=== PATIENT | male | born 1955 | race American Indian/Alaskan Native ===

== ENCOUNTER 2022-05-09 22:09 | Inpatient (IN) | payer MEDICAID, MEDICARE ==
[2022-05-09] MEDS ORDERED: IPRATROPIUM 0.02% NEBU 2.5 ML IH ONE (22:51)
[2022-05-09] MEDS ORDERED: ALBUTEROL 2.5 MG/3 ML NEBU IH ONE (22:51)
--- NOTE | 2022-05-09 22:56 | Emergency Department Report ---
ED Shortness of Breath HPI - General Chief Complaint: Dyspnea/Respdistress Stated Complaint: RAIE Time Seen by Provider: 05/09/22 22:37 Source: patient, EMS Mode of arrival: Stretcher Limitations: No Limitations - History of Present Illness Initial Comments: 66-year-old male with a tracheostomy x4 years status post acute respiratory failure secondary to CHF, diabetes, COPD with as needed 2 L home oxygen use, obesity, and asthma presents to the hospital with complaints of progressive worsening dyspnea today. Other symptoms include cough, frothy sputum, and worsening lower extremity edema. Patient has been noncompliant with his nightly Lasix for 3 to 4 days because it makes him urinate too much. He complains of anterior intermittent chest pain with coughing. EMS reports that patient was in tripoding position, diaphoretic, with a room air saturation 92% upon their arrival. He was suctioned approximately 8 times, received albuterol 5 mg in r oute, and Decadron 10 mg with improvement in symptoms. He was placed on tracheostomy oxygen collar with minified oxygen and additional suctioning of frothy sputum was performed by respiratory therapist. Patient denies fever. He is vaccinated for COVID. He denies history of PE/DVT or current anticoagulant use. His tracheostomy doctor is affiliated with [facility]. His sider mechanic is affiliated with [facility] - Related Data Allergies Allergy/AdvReac Type Severity Reaction Status Date / Time No Known Allergies Allergy Unverified 05/09/22 22:31 ED Review of Systems ROS: Stated complaint: ARIE Other details as noted in HPI Comment: All other systems reviewed and negative ED Past Medical Hx - Past Medical History Previous Medical History?: Yes Hx Heart Attack/AMI: Yes Hx Congestive Heart Failure: Yes Hx Diabetes: Yes Hx Asthma: Yes Hx COPD: Yes - Surgical History Past Surgical History?: Yes Additional Surgical History: trach - Social History Smoking Status: Former Smoker ED Physical Exam - General Limitations: No Limitations - Other Other exam information: General: No acute distress Head: Atraumatic Eyes: normal appearance ENT: Moist mucous membranes Neck: Normal appearance, tracheostomy noted, no stridor, patient able to speak with occlusion of tracheostomy. Frequent cough. Frothy clear sputum aspirated from tracheostomy site by respiratory therapist Chest: Frequent cough, bilateral expiratory wheezing, mild respiratory distress CV: Regular rate and rhythm Abdomen: Soft, normal bowel sounds, nontender, nondistended, no rebound or guarding Back: Normal inspection Extremity: 2+ bilateral lower extremity edema without calf tenderness or leg asymmetry Neuro: Alert O x 3, no facial asymmetry, speech clear, no gross motor sensory deficit Psych: Appropriate behavior Skin: No rash ED Course Vital Signs 05/09/22 05/09/22 05/09/22 22:30 22:31 22:45 Temperature 98.2 F Pulse Rate 97 H Pulse Rate [ 92 H Posterior Bilateral Throughout] Pulse Rate [ 97 H Posterior] Respiratory 18 Rate Respiratory 20 Rate [Posterior Bilateral Throughout] Respiratory 20 Rate [Posterior ] Blood Pressure 147/75 O2 Sat by Pulse 98 Oximetry O2 Sat by Pulse 96 Oximetry [ Assessment] 05/09/22 05/09/22 05/09/22 23:11 23:15 23:31 Temperature Pulse Rate 96 H 96 H 94 H Pulse Rate [ Posterior Bilateral Throughout] Pulse Rate [ Posterior] Respiratory 8 L 11 L 12 Rate Respiratory Rate [Posterior Bilateral Throughout] Respiratory Rate [Posterior ] Blood Pressure 149/79 149/79 O2 Sat by Pulse 98 92 98 Oximetry O2 Sat by Pulse Oximetry [ Assessment] 05/09/22 05/10/22 23:45 00:01 Temperature Pulse Rate 101 H 104 H Pulse Rate [ Posterior Bilateral Throughout] Pulse Rate [ Posterior] Respiratory 14 15 Rate Respiratory Rate [Posterior Bilateral Throughout] Respiratory Rate [Posterior ] Blood Pressure 149/79 153/88 O2 Sat by Pulse 93 96 Oximetry O2 Sat by Pulse Oximetry [ Assessment] - Reevaluation(s) Reevaluation #1: 05/09/22 23:34 ORDERED EKG REQUESTED 05/09/22 23:34 ATTEMPTING TO CALL LAB REGARDING BNP AND TROP DELAY (blood is in the lab and cmp has resulted), NO ANSWER, DISCUSSED WITH FLIGHT MECHANIC WHO WILL F/U WITH LAB. 05/09/22 23:50 EKG reviewed 05/10/22 00:41 I STILL DO NOT HAVE TROP AND BNP RESULTS, I REQUESTED THAT THE CHARGE NURSE TOM CALL THE LAB TO SEE IF SHE CAN GET THIS ISSUE RESOLVED. 05/10/22 01:31 TROP AND BNP REVIEWED AND NORMAL RANGE. PT IS UPSTAIRS ADMITTED ED Medical Decision Making - Lab Data Result diagrams: 05/09/22 22:53 05/09/22 22:53 Lab Results 05/09/22 05/09/22 05/09/22 Range/Units 22:53 22:53 22:53 WBC 7.6 (4.5-11.0) K/mm3 RBC 4.92 (3.65-5.03) M/mm3 Hgb 13.5 (11.8-15.2) gm/dl Hct 41.5 (35.5-45.6) % MCV 84 (84-94) fl MCH 28 (28-32) pg MCHC 33 (32-34) % RDW 16.6 H (13.2-15.2) % Plt Count 245 (140-440) K/mm3 Lymph % (Auto) 33.4 (13.4-35.0) % [place] % (Auto) 5.3 (0.0-7.3) % Eos % (Auto) 3.2 (0.0-4.3) % Baso % (Auto) 1.0 (0.0-1.8) % Lymph # (Auto) 2.5 (1.2-5.4) K/mm3 [place] # (Auto) 0.4 (0.0-0.8) K/mm3 Eos # (Auto) 0.2 (0.0-0.4) K/mm3 Baso # (Auto) 0.1 (0.0-0.1) K/mm3 Seg Neutrophils % 57.1 (40.0-70.0) % Seg Neutrophils # 4.3 (1.8-7.7) K/mm3 PT 12.5 (12.2-14.9) Sec. INR 0.83 L (0.87-1.13) APTT 22.0 L (24.2-36.6) Sec. Sodium 144 (137-145) mmol/L Potassium 3.4 L (3.6-5.0) mmol/L Chloride 101.1 (98-107) mmol/L Carbon Dioxide 26 (22-30) mmol/L Anion Gap 20 mmol/L BUN 12 (9-20) mg/dL Creatinine 0.7 L (0.8-1.3) mg/dL Estimated GFR > 60 ml/min BUN/Creatinine Ratio 17 % Glucose 241 H (75-100) mg/dL Calcium 8.7 (8.4-10.2) mg/dL Total Bilirubin 0.40 (0.1-1.2) mg/dL AST 70 H (5-40) units/L ALT 73 H (7-56) units/L Alkaline Phosphatase 90 (35-129) units/L Total Protein 7.0 (6.3-8.2) g/dL Albumin 3.9 (3.9-5) g/dL Albumin/Globulin Ratio 1.3 % BNP AND TROP PENDING - EKG Data -: EKG Interpreted by Me (ANTERIOR Q WAVES) EKG shows normal: sinus rhythm Rate: bradycardia (59) - EKG Data When compared to previous EKG there are: previous EKG unavailable - Radiology Data Radiology results: report reviewed CHEST 1 VIEW 05/09/2022 10:59 PM INDICATION / CLINICAL INFORMATION: Dyspnea, trach, copd, chf. COMPARISON: One view of the chest from 05/06/2012. FINDINGS: SUPPORT DEVICES: There is expected positioning of a tracheostomy tube. HEART / MEDIASTINUM: No significant abnormality. LUNGS / PLEURA: There are nonspecific bibasilar opacities, left greater than right. The upper lungs are clear. No significant pleural effusion. No pneumothorax. ADDITIONAL FINDINGS: No significant additional findings. IMPRESSION: Nonspecific bibasilar opacities could represent atelectasis or pneumonia. - Medical Decision Making 66-year male presents to the hospital with shortness of breath and wheezing with history of COPD, CHF, asthma, tracheostomy. Patient symptoms improving with bronchodilators, steroids, and magnesium ordered. Chest x-ray read by radiology as atelectasis versus infiltrate. Patient does have a cough of frothy sputum and worsening leg edema. Patient does not have a fever or leukocytosis however, blood cultures ordered and patient treated with Rocephin and azithromycin for community-acquired pneumonia/COPD exacerbation with increased sputum production. Mild hypokalemia noted in p.o. potassium ordered. Critical Care Time: No Critical care attestation.: If time is entered above; I have spent that time in minutes in the direct care of this critically ill patient, excluding procedure time. ED Disposition Clinical Impression: Acute exacerbation of COPD with asthma, CHF exacerbation, Bilateral pulmonary infiltrates on CXR, Noncompliance with medication regimen, Tracheostomy dependent Disposition: ADMITTED INPATIENT Is pt being admited?: Yes Condition: Stable Time of Disposition: 23:52 (Dr Stacy/hospitalist)
[2022-05-09 23:15] LABS: Basophils # (Auto) 0.1 K/mm3 (0.0-0.1); Eosinophils # (Auto) 0.2 K/mm3 (0.0-0.4); Eosinophils % (Auto) 3.2 % (0.0-4.3); Hematocrit 41.5 % (35.5-45.6); Hemoglobin 13.5 gm/dl (11.8-15.2); Lymphocytes # (Auto) 2.5 K/mm3 (1.2-5.4); Lymphocytes % (Auto) 33.4 % (13.4-35.0); Mean Corpuscular HGB Conc 33 % (32-34); Mean Corpuscular Volume 84 fl (84-94); Monocytes # (Auto) 0.4 K/mm3 (0.0-0.8); Monocytes % (Auto) 5.3 % (0.0-7.3); Platelet Count 245 K/mm3 (140-440); Red Blood Count 4.92 M/mm3 (3.65-5.03); Red Cell Distribution Width 16.6 % (13.2-15.2)
--- NOTE | 2022-05-09 23:19 | XRay Report ---
CHEST 1 VIEW 05/09/2022 10:59 PM INDICATION / CLINICAL INFORMATION: Dyspnea, trach, copd, chf. COMPARISON: One view of the chest from 05/06/2012. FINDINGS: SUPPORT DEVICES: There is expected positioning of a tracheostomy tube. HEART / MEDIASTINUM: No significant abnormality. LUNGS / PLEURA: There are nonspecific bibasilar opacities, left greater than right. The upper lungs a re clear. No significant pleural effusion. No pneumothorax. ADDITIONAL FINDINGS: No significant additional findings. IMPRESSION: Nonspecific bibasilar opacities could represent atelectasis or pneumonia. Signer Name: Brody Abreu MD Signed: 05/09/2022 11:15 PM Workstation Name: [id number]
[2022-05-09 23:23] LABS: INR 0.83 (0.87-1.13)
[2022-05-09] MEDS ORDERED: MAGNESIUM SULFATE 2 GM/50 ML BAG IV ONE (23:24)
[2022-05-09 23:28] LABS: Alanine Aminotransferase 73 units/L (7-56); Albumin 3.9 g/dL (3.9-5); Blood Urea Nitrogen 12 mg/dL (9-20); Calcium 8.7 mg/dL (8.4-10.2); Hemolysis Index 19
[2022-05-09 23:30] LABS: BUN/Creatinine Ratio 17
[2022-05-09] MEDS ORDERED: POTASSIUM CHLORIDE 20 MEQ PACKET PO ONE (23:31)
[2022-05-09] MEDS ORDERED: AZITHROMYCIN/NS 500 MG/250 ML 500 MG/250 ML BAG IV ONE (23:32)
[2022-05-09] MEDS ORDERED: cefTRIAXone/NS 1 GM/50 ML 1 GM/50 ML BAG IV ONE (23:32)
[2022-05-09] MEDS ORDERED: DEXTROSE 50% IN WATER (25GM) 50 ML SYRINGE IV PRN (23:55)
[2022-05-09] MEDS ORDERED: MAGNESIUM HYDROXIDE (MOM) ORAL LIQD UDC PO PRN (23:55)
[2022-05-09] MEDS ORDERED: ACETAMINOPHEN 325 MG TAB PO PRN (23:55)
--- NOTE | 2022-05-10 00:08 | History and Physical Report ---
History of Present Illness Date of examination: 05/09/22 Date of admission: 05/09/2022 Chief complaint: Shortness of breath History of present illness: ' 66-year-old -German male with known history of CHF, COPD, diabetes mellitus and history of coronary artery disease presenting to the emergency room today via EMS with complaints of shortness of breath. Shortness of breath has been getting progressively worse during the course of the day. He has had some cough Productive of some frothy sputum. He also has complained of some swelling in his extremities. Patient admits that he has not been quite compliant with his diuretics. He has not had his diuretic for about 3 to 4 days. Patient denies any fever or chills, no chest pain, no headache or dizziness and no diaphoresis. She denies any sick contacts and no recent travel. Denies any contact with anyone with COVID-19. Indicates he has been fully vaccinated against COVID-19. Upon arrival of EMS was said to be diaphoretic with an O2 saturation of 92% on room air. Patient was repeatedly suctioned and given some nebulizing treatment in route to the hospital. Work-up in the emergency room today, labs significant for mild hypokalemia of 3.4. Chest x-ray shows nonspecific bibasilar opacities which could represent atelectasis or pneumonia. Patient placed on nebulizer treatments, empiric IV antibiotics and diuretics. Past History Past Medical History: acute AR, COPD, diabetes, heart failure, hypertension, other (Asthma) Past Surgical History: Other (History of trip placement) Social history: smoking (Former smoker) Medications and Allergies Allergies Allergy/AdvReac Type Severity Reaction Status Date / Time No Known Allergies Allergy Unverified 05/09/22 22:31 Active Meds: Active Medications Acetaminophen (Acetaminophen 325 Mg Tab) 650 mg PO Q4H PRN PRN Reason: Pain MILD(1-3)/Fever >100.5/FUNG Albuterol/Ipratropium (Ipratropium/Albuterol Sulfate 3 Ml Ampul.Neb) 1 ampul IH Q6HRT [facility] Dextrose (Dextrose 50% In Water (25gm) 50 Ml Syringe) 50 ml IV Q30MIN PRN; Protocol PRN Reason: Hypoglycemia Furosemide (Furosemide 40 Mg/4 Ml Inj) 40 mg IV BID@0600,1800 [facility] Heparin Sodium (Porcine) (Heparin 5,000 Unit/1 Ml Vial) 5,000 unit SUB-Q Q8HR [facility] Azithromycin (Zithromax/Ns) 500 mg in 250 mls @ 250 mls/hr IV ONCE ONE; Protocol Stop: 05/10/22 00:31 Azithromycin (Zithromax/Ns) 500 mg in 250 mls @ 250 mls/hr IV Q24H JUSTINO; Protocol Ceftriaxone Sodium (Rocephin/Ns 2 Gm/100 Ml) 2 gm in 100 mls @ 200 mls/hr IV Q24H JUSTINO; Protocol Insulin Human Lispro (Insulin Lispro 100 Unit/Ml) 0 unit SUB-Q ACHS JUSTINO; Protocol Magnesium Hydroxide (Magnesium Hydroxide (Mom) Oral Liqd Udc) 30 ml PO Q4H PRN PRN Reason: Constipation Morphine Sulfate (Morphine 2 Mg/1 Ml Inj) 2 mg IV Q4H PRN PRN Reason: Pain, Moderate (4-6) Morphine Sulfate (Morphine 4 Mg/1 Ml Inj) 4 mg IV Q4H PRN PRN Reason: Pain , Severe (7-10) Ondansetron HCl (Ondansetron 4 Mg/2 Ml Inj) 4 mg IV Q8H PRN PRN Reason: Nausea And Vomiting Sodium Chloride (Sodium Chloride 0.9% 10 Ml Flush Syringe) 10 ml IV BID JUSTINO Sodium Chloride (Sodium Chloride 0.9% 10 Ml Flush Syringe) 10 ml IV PRN PRN PRN Reason: LINE FLUSH Review of Systems Constitutional: no fever, no chills Ears, nose, mouth and throat: no nasal congestion, no sore throat Cardiovascular: no chest pain, no palpitations Respiratory: shortness of breath, wheezing, no cough Gastrointestinal: no abdominal pain, no nausea, no vomiting, no diarrhea Genitourinary Male: no dysuria, no hematuria, no flank pain, no nocturia Musculoskeletal: no neck pain, no low back pain Integumentary: no rash, no pruritis Neurological: no headaches, no confusion Psychiatric: no anxiety, no depression Endocrine: no polyphagia, no polydipsia, no polyuria, no nocturia Exam - Constitutional Vitals: Temp Pulse Resp BP Pulse Ox 98.2 F 92 H 20 147/75 98 05/09/22 22:31 05/09/22 22:45 05/09/22 22:45 05/09/22 22:31 05/09/22 22:31 General appearance: Present: no acute distress, well-nourished, obese - EENT Eyes: Present: PERRL, EOM intact. Absent: scleral icterus ENT: hearing intact, clear oral mucosa, dentition normal, other (Trach in place) - Neck Neck: Present: supple, normal ROM - Respiratory Respiratory effort: normal Respiratory: bilateral: rales - Cardiovascular Rhythm: regular Heart Sounds: Present: S1 & S2. Absent: gallop, systolic murmur, diastolic murm ur, rub, click - Extremities Extremities: no ischemia, pulses intact, normal temperature, normal color, Full ROM Extremity abnormal: edema (1+ bilateral lower extremity edema) Peripheral Pulses: within normal limits - Abdominal General gastrointestinal: Present: soft, non-tender, non-distended, normal bowel sounds. Absent: mass - Integumentary Integumentary: Present: clear, warm, dry, normal turgor. Absent: rash - Musculoskeletal Musculoskeletal: strength equal bilaterally - Psychiatric Psychiatric: appropriate mood/affect, intact judgment & insight, memory intact, cooperative - Neurologic Neurologic: CNII-XII intact, no focal deficits, moves all extremities Results - Labs CBC & Chem 7: 05/09/22 22:53 05/09/22 22:53 Labs: Abnormal lab results 05/09/22 05/09/22 05/09/22 Range/Units 22:53 22:53 22:53 RDW 16.6 H (13.2-15.2) % INR 0.83 L (0.87-1.13) APTT 22.0 L (24.2-36.6) Sec. Potassium 3.4 L (3.6-5.0) mmol/L Creatinine 0.7 L (0.8-1.3) mg/dL Glucose 241 H (75-100) mg/dL AST 70 H (5-40) units/L ALT 73 H (7-56) units/L Assessment and Plan Assessment 1. Respiratory distresssecondary to CHF exacerbation versus COPD 2. Hypokalemia 3. Diabetes mellitus 4. History of asthma 5. History of coronary artery disease 6. Trach dependent Plan: 1. Patient admitted to the medical floor. Placed on nebulizing treatments and IV steroid. 2. Also placed on diuretics and monitor inputs and outputs and daily weights. 3. We will schedule patient for echocardiogram. 4. We will resume routine home medications. 5. Patient placed on sliding scale insulin. We will monitor Accu-Cheks. 6. We will replete potassium and monitor chemistry. DVT prophylaxis: Subcutaneous heparin CODE STATUS: Full code
[2022-05-10] MEDS ORDERED: IPRATROPIUM/ALBUTEROL SULFATE 3 ML AMPUL.NEB IH SCH (02:00)
[2022-05-10] MEDS: IPRATROPIUM/ALBUTEROL SULFATE 3 ML AMPUL.NEB IH SCH ×4 (02:00→20:01)
[2022-05-10] MEDS ORDERED: POTASSIUM CHLORIDE 20 MEQ PACKET PO ONE (02:00)
[2022-05-10] MEDS: ONDANSETRON 4 MG/2 ML INJ IV PRN ×3 (02:09→21:11)
[2022-05-10] MEDS: MORPHINE 4 MG/1 ML INJ IV PRN ×3 (02:09→21:11)
[2022-05-10 05:46] LABS: Basophils % (Auto) 0.4 % (0.0-1.8); Eosinophils % (Auto) 0.1 % (0.0-4.3); Hemoglobin 13.3 gm/dl (11.8-15.2); Mean Corpuscular HGB Conc 32 % (32-34); Mean Corpuscular Volume 85 fl (84-94); Monocytes # (Auto) 0.1 K/mm3 (0.0-0.8); Monocytes % (Auto) 0.9 % (0.0-7.3); Platelet Count 227 K/mm3 (140-440); Red Blood Count 4.92 M/mm3 (3.65-5.03); Red Cell Distribution Width 16.4 % (13.2-15.2)
[2022-05-10] MEDS: HEPARIN 5,000 UNIT/1 ML VIAL SUB-Q SCH ×3 (05:50→21:07)
[2022-05-10] MEDS: methylPREDNISolone Sod Succinate 40 MG/1 ML INJ IV SCH ×3 (05:50→21:06)
[2022-05-10] MEDS: FUROSEMIDE 40 MG/4 ML INJ IV SCH ×2 (05:51→17:01)
[2022-05-10 05:53] LABS: Blood Urea Nitrogen 12 mg/dL (9-20); Calcium 8.6 mg/dL (8.4-10.2); Hemolysis Index 8
[2022-05-10 05:54] LABS: BUN/Creatinine Ratio 17
[2022-05-10] MEDS: INSULIN LISPRO 100 UNIT/ML SUB-Q SCH ×4 (08:22→21:07)
--- NOTE | 2022-05-10 10:03 | Progress Note ---
Assessment and Plan Assessment and plan: Acute on chronic hypoxic respiratory failure. Tracheostomy dependent Acute CHF. COPD exacerbation Hypokalemia Diabetes mellitus type 2 History of CAD 05/10/2022. Follow-up COVID 19 PCR. Continue IV steroids and bronchodilators/nebulizers. Continue diuresis and monitor I/O's plus daily weights. Follow-up echocardiogram. Cardiology consultation pending. Continue tracheostomy care, secretion control and airway management. Continue sliding scale insulin and Accu-Cheks. History Interval history: No new issues overnight Hospitalist Physical - Constitutional Vitals: Temp Pulse Resp BP Pulse Ox 98.1 F 94 H 20 169/88 95 05/10/22 07:43 05/10/22 07:43 05/10/22 03:55 05/10/22 07:43 05/10/22 07:43 General appearance: Present: no acute distress, well-nourished, obese - EENT Eyes: Present: PERRL, EOM intact ENT: hearing intact, clear oral mucosa, dentition normal - Neck Neck: Present: supple, normal ROM - Respiratory Respiratory effort: normal Respiratory: bilateral: CTA - Cardiovascular Rhythm: regular Heart Sounds: Present: S1 & S2. Absent: gallop, rub - Extremities Extremities: no ischemia, No edema, Full ROM - Abdominal General gastrointestinal: soft, non-tender, non-distended, normal bowel sounds - Integumentary Integumentary: Present: clear, warm, dry - Neurologic Neurologic: CNII-XII intact, moves all extremities HEART Score - HEART Score Troponin: Troponin T < 0.010 ng/mL (0.00-0.029) 05/10/22 04:43 Results - Labs CBC & Chem 7: 05/10/22 04:43 05/10/22 04:43 Labs: Laboratory Last Values WBC 7.7 K/mm3 (4.5-11.0) 05/10/22 04:43 RBC 4.92 M/mm3 (3.65-5.03) 05/10/22 04:43 Hgb 13.3 gm/dl (11.8-15.2) 05/10/22 04:43 Hct 42.0 % (35.5-45.6) 05/10/22 04:43 MCV 85 fl (84-94) 05/10/22 04:43 MCH 27 pg (28-32) L 05/10/22 04:43 MCHC 32 % (32-34) 05/10/22 04:43 RDW 16.4 % (13.2-15.2) H 05/10/22 04:43 Plt Count 227 K/mm3 (140-440) 05/10/22 04:43 Lymph % (Auto) 13.0 % (13.4-35.0) L 05/10/22 04:43 [place] % (Auto) 0.9 % (0.0-7.3) 05/10/22 04:43 Eos % (Auto) 0.1 % (0.0-4.3) 05/10/22 04:43 Baso % (Auto) 0.4 % (0.0-1.8) 05/10/22 04:43 Lymph # (Auto) 1.0 K/mm3 (1.2-5.4) L 05/10/22 04:43 [place] # (Auto) 0.1 K/mm3 (0.0-0.8) 05/10/22 04:43 Eos # (Auto) 0.0 K/mm3 (0.0-0.4) 05/10/22 04:43 Baso # (Auto) 0.0 K/mm3 (0.0-0.1) 05/10/22 04:43 Seg Neutrophils % 85.6 % (40.0-70.0) H 05/10/22 04:43 Seg Neutrophils # 6.6 K/mm3 (1.8-7.7) 05/10/22 04:43 PT 12.5 Sec. (12.2-14.9) 05/09/22 22:53 INR 0.83 (0.87-1.13) L 05/09/22 22:53 APTT 22.0 Sec. (24.2-36.6) L 05/09/22 22:53 Sodium 140 mmol/L (137-145) 05/10/22 04:43 Potassium 4.4 mmol/L (3.6-5.0) D 05/10/22 04:43 Chloride 100.0 mmol/L (98-107) 05/10/22 04:43 Carbon Dioxide 25 mmol/L (22-30) 05/10/22 04:43 Anion Gap 19 mmol/L 05/10/22 04:43 BUN 12 mg/dL (9-20) 05/10/22 04:43 Creatinine 0.7 mg/dL (0.8-1.3) L 05/10/22 04:43 Estimated GFR > 60 ml/min 05/10/22 04:43 BUN/Creatinine Ratio 17 % 05/10/22 04:43 Glucose 270 mg/dL (75-100) H 05/10/22 04:43 POC Glucose 290 mg/dL (70-105) H 05/10/22 07:41 Calcium 8.6 mg/dL (8.4-10.2) 05/10/22 04:43 Total Bilirubin 0.40 mg/dL (0.1-1.2) 05/09/22 22:53 AST 70 units/L (5-40) H 05/09/22 22:53 ALT 73 units/L (7-56) H 05/09/22 22:53 Alkaline Phosphatase 90 units/L (35-129) 05/09/22 22:53 Troponin T < 0.010 ng/mL (0.00-0.029) 05/10/22 04:43 NT-Pro-B Natriuret Pep 27.76 pg/mL (0-900) 05/09/22 22:53 Total Protein 7.0 g/dL (6.3-8.2) 05/09/22 22:53 Albumin 3.9 g/dL (3.9-5) 05/09/22 22:53 Albumin/Globulin Ratio 1.3 % 05/09/22 22:53 Microbiology: Microbiology 05/09/22 23:41 Peripheral/Venous Blood Culture - Preliminary Culture in Progress 05/10/22 00:27 Peripheral/Venous Blood Culture - Preliminary Culture in Progress [place]/IV: Voiding Method Urinal Active Medications - Current Medications Current Medications: Generic Name Dose Route Start Last Admin Trade Name Freq PRN Reason Stop Dose Admin Acetaminophen 650 mg 05/09/22 23:55 Acetaminophen 325 Mg Tab PO Q4H PRN Pain MILD(1-3)/Fever >100.5/FUNG Albuterol/Ipratropium 1 ampul 05/10/22 02:00 05/10/22 02:00 Ipratropium/Albuterol Sulfate 3 Ml Ampul.Neb IH Not Given Q6HRT [facility]INO Dextrose 0 ml 05/09/22 23:55 Dextrose 50% In Water (25gm) 50 Ml Syringe IV Q30MIN PRN Hypoglycemia Protocol Furosemide 40 mg 05/10/22 06:00 05/10/22 05:51 Furosemide 40 Mg/4 Ml Inj IV 40 mg BID@0600,1800 JUST[facility] Administration Heparin Sodium (Porcine) 5,000 unit 05/10/22 06:00 05/10/22 05:50 Heparin 5,000 Unit/1 Ml Vial SUB-Q 5,000 unit Q8HR [facility]INO Administration Azithromycin 500 mg in 250 mls @ 250 mls/hr 05/10/22 10:00 Zithromax/Ns IV Q24HR [facility] Protocol Ceftriaxone Sodium 2 gm in 100 mls @ 200 mls/hr 05/10/22 10:00 Rocephin/Ns 2 Gm/100 Ml IV Q24HR [facility] Protocol Insulin Human Lispro 0 unit 05/10/22 07:30 05/10/22 08:22 Insulin Lispro 100 Unit/Ml SUB-Q 4 unit ACHS JUSTINO Administration Protocol Magnesium Hydroxide 30 ml 05/09/22 23:55 Magnesium Hydroxide (Mom) Oral Liqd Udc PO Q4H PRN Constipation Methylprednisolone Sodium Succinate 40 mg 05/10/22 06:00 05/10/22 05:50 Methylprednisolone Sod Succinate 40 Mg/1 Ml Inj IV 40 mg Q8HR JUSTINO Administration Morphine Sulfate 2 mg 05/09/22 23:55 Morphine 2 Mg/1 Ml Inj IV Q4H PRN Pain, Moderate (4-6) Morphine Sulfate 4 mg 05/09/22 23:55 05/10/22 08:28 Morphine 4 Mg/1 Ml Inj IV 4 mg Q4H PRN Administration Pain , Severe (7-10) Ondansetron HCl 4 mg 05/09/22 23:55 05/10/22 02:09 Ondansetron 4 Mg/2 Ml Inj IV 4 mg Q8H PRN Administration Nausea And Vomiting Sodium Chloride 10 ml 05/10/22 10:00 Sodium Chloride 0.9% 10 Ml Flush Syringe IV BID JUSTINO Sodium Chloride 10 ml 05/09/22 23:55 Sodium Chloride 0.9% 10 Ml Flush Syringe IV PRN PRN LINE FLUSH
[2022-05-10] MEDS: AZITHROMYCIN/NS 500 MG/250 ML 500 MG/250 ML BAG IV SCH (10:18)
[2022-05-10] MEDS: cefTRIAXone/NS 2 GM/100 ML 2 GM/100 ML BAG IV SCH (10:18)
--- NOTE | 2022-05-10 14:25 | Electrocardiograph Report ---
[facility] Test Date: 2022-05-09 Test Time: 23:46:49 Pat Name: DIEGO DENNY Department: Room: A476 1 Gender: M Medical Lab Assistant: SHERYL : 1955 Requested By: LEIA SYLVESTER Order Number: [id number] Reading MD: Marv Quiles Measurements Intervals [place] Rate: 99 P: 79 [place]: 144 QRS: -28 QRSD: 95 T: 62 QT: 370 QTc: 475 Interpretive Statements Sinus rhythm Left axis deviation Anterior infarct, old No previous ECG available for comparison Electronically Signed On 05-10-2022 14:24:56 EDT by Marv Quiles
[2022-05-11] MEDS: IPRATROPIUM/ALBUTEROL SULFATE 3 ML AMPUL.NEB IH SCH ×4 (04:44→21:21)
[2022-05-11] MEDS: HEPARIN 5,000 UNIT/1 ML VIAL SUB-Q SCH ×3 (05:21→22:59)
[2022-05-11] MEDS: FUROSEMIDE 40 MG/4 ML INJ IV SCH ×2 (05:21→18:12)
[2022-05-11] MEDS: methylPREDNISolone Sod Succinate 40 MG/1 ML INJ IV SCH ×3 (05:21→22:58)
[2022-05-11 06:33] LABS: Basophils # (Auto) 0.1 K/mm3 (0.0-0.1); Basophils % (Auto) 0.7 % (0.0-1.8); Eosinophils # (Auto) 0.1 K/mm3 (0.0-0.4); Eosinophils % (Auto) 0.6 % (0.0-4.3); Hematocrit 43.9 % (35.5-45.6); Hemoglobin 14.1 gm/dl (11.8-15.2); Lymphocytes # (Auto) 1.2 K/mm3 (1.2-5.4); Lymphocytes % (Auto) 11.4 % (13.4-35.0); Mean Corpuscular HGB Conc 32 % (32-34); Mean Corpuscular Volume 84 fl (84-94); Monocytes # (Auto) 0.3 K/mm3 (0.0-0.8); Monocytes % (Auto) 3.2 % (0.0-7.3); Platelet Count 229 K/mm3 (140-440); Red Cell Distribution Width 16.2 % (13.2-15.2)
[2022-05-11 06:57] LABS: BUN/Creatinine Ratio 20; Blood Urea Nitrogen 20 mg/dL (9-20); Calcium 8.7 mg/dL (8.4-10.2); Hemolysis Index 90
[2022-05-11] MEDS: INSULIN LISPRO 100 UNIT/ML SUB-Q SCH ×4 (08:29→23:00)
[2022-05-11] MEDS: INSULIN GLARGINE 100 UNITS/ML SUB-Q SCH (08:34)
[2022-05-11] MEDS: cefTRIAXone/NS 2 GM/100 ML 2 GM/100 ML BAG IV SCH (09:18)
[2022-05-11] MEDS: AZITHROMYCIN/NS 500 MG/250 ML 500 MG/250 ML BAG IV SCH (09:18)
[2022-05-11] MEDS: MORPHINE 4 MG/1 ML INJ IV PRN ×2 (09:18→22:58)
--- NOTE | 2022-05-11 10:53 | Consultation ---
History of Present Illness Consult date: 05/11/22 Consult reason: congestive heart failure History of present illness: 66-year-old male with past medical history of diabetes, asthma, and trach dep endence is admitted with shortness of breath. Patient reports that he was previously told of heart failure history. He is currently without chest pain or shortness of breath. Work-up thus far notable for EKG with sinus rhythm, no acute ischemic changes, and possible anteroseptal Q waves. Troponins x3 is negative and NT-proBNP is normal. Chest x-ray notable for nonspecific bibasilar opacities possibly representing atelectasis or pneumonia. COVID-19 testing is negative. Tele - ST 103 Past History Past Medical History: acute [place], COPD, diabetes, heart failure, hypertension, other (Asthma) Past Surgical History: Other (History of trip placement) Social history: smoking (Former smoker) Medications and Allergies Allergies Allergy/AdvReac Type Severity Reaction Status Date / Time No Known Allergies Allergy Verified 05/10/22 10:40 Home Medications Medication Instructions Recorded Confirmed Last Taken Type ALBUTEROL NEB's [Proventil 0.083% 2.5 mg IH TID PRN 05/10/22 05/10/22 Unknown History NEBS] Albuterol Mdi (or & Nicu Only) 1 puff IH QID PRN 05/10/22 05/10/22 Unknown History [ProAir HFA Inhaler] AtorvaSTATin [Lipitor] 40 mg PO QDAY 05/10/22 05/10/22 Unknown History Fluticasone/Salmeterol [Advair 250 mg INHALATION QDAY 05/10/22 05/10/22 Unknown History Diskus 250-50 mcg] Furosemide [Lasix] 40 mg PO DAILY 05/10/22 05/10/22 Unknown History Gabapentin 300 mg PO DAILY 05/10/22 05/10/22 Unknown History Insulin Aspart [Novolog Flexpen] 30 unit SQ TID 05/10/22 05/10/22 Unknown History Naproxen [Naprosyn TAB] 500 mg PO DAILY 05/10/22 05/10/22 Unknown History Active Meds: Active Medications Acetaminophen (Acetaminophen 325 Mg Tab) 650 mg PO Q4H PRN PRN Reason: Pain MILD(1-3)/Fever >100.5/FUNG Albuterol/Ipratropium (Ipratropium/Albuterol Sulfate 3 Ml Ampul.Neb) 1 ampul IH Q6HRT [facility] Last Admin: 05/11/22 08:22 Dose: 1 ampul Dextrose (Dextrose 50% In Water (25gm) 50 Ml Syringe) 0 ml IV Q30MIN PRN; Protocol PRN Reason: Hypoglycemia Furosemide (Furosemide 40 Mg/4 Ml Inj) 40 mg IV BID@0600,1800 [facility] Last Admin: 05/11/22 05:21 Dose: 40 mg Heparin Sodium (Porcine) (Heparin 5,000 Unit/1 Ml Vial) 5,000 unit SUB-Q Q8HR [facility] Last Admin: 05/11/22 05:21 Dose: 5,000 unit Azithromycin (Zithromax/Ns) 500 mg in 250 mls @ 250 mls/hr IV Q24HR [facility]; Protocol Last Admin: 05/11/22 09:18 Dose: 250 mls/hr Ceftriaxone Sodium (Rocephin/Ns 2 Gm/100 Ml) 2 gm in 100 mls @ 200 mls/hr IV Q24HR [facility]; Protocol Last Admin: 05/11/22 09:18 Dose: 200 mls/hr Insulin Glargine (Insulin Glargine 100 Units/Ml) 15 units SUB-Q DAILY [facility] Last Admin: 05/11/22 08:34 Dose: 15 units Insulin Human Lispro (Insulin Lispro 100 Unit/Ml) 0 unit SUB-Q ACHS [facility]; Protocol Last Admin: 05/11/22 08:29 Dose: 8 unit Magnesium Hydroxide (Magnesium Hydroxide (Mom) Oral Liqd Udc) 30 ml PO Q4H PRN PRN Reason: Constipation Methylprednisolone Sodium Succinate (Methylprednisolone Sod Succinate 40 Mg/1 Ml Inj) 40 mg IV Q8HR [facility] Last Admin: 05/11/22 05:21 Dose: 40 mg Morphine Sulfate (Morphine 2 Mg/1 Ml Inj) 2 mg IV Q4H PRN PRN Reason: Pain, Moderate (4-6) Morphine Sulfate (Morphine 4 Mg/1 Ml Inj) 4 mg IV Q4H PRN PRN Reason: Pain , Severe (7-10) Last Admin: 05/11/22 09:18 Dose: 4 mg Ondansetron HCl (Ondansetron 4 Mg/2 Ml Inj) 4 mg IV Q8H PRN PRN Reason: Nausea And Vomiting Last Admin: 05/10/22 21:11 Dose: 4 mg Sodium Chloride (Sodium Chloride 0.9% 10 Ml Flush Syringe) 10 ml IV BID JUSTINO Last Admin: 05/11/22 09:19 Dose: 10 ml Sodium Chloride (Sodium Chloride 0.9% 10 Ml Flush Syringe) 10 ml IV PRN PRN PRN Reason: LINE FLUSH Physical Examination Vital Signs Pulse Ox 96 05/09/22 22:30 Narrative exam: Gen-NAD, comfortable HEENT-normocephalic, atraumatic CV-RRR, no murmurs Lungs-CTAB, no increased WOB, + trach Abd-soft, nt,nd, obese Ext-no edema, warm to touch Neuro-no focal deficits, alert and oriented Psych-normal affect, no agitation Results 05/11/22 06:06 05/11/22 06:06 CBC 05/11/22 Range/Units 06:06 WBC 10.4 (4.5-11.0) K/mm3 RBC 5.20 H (3.65-5.03) M/mm3 Hgb 14.1 (11.8-15.2) gm/dl Hct 43.9 (35.5-45.6) % Plt Count 229 (140-440) K/mm3 Lymph # (Auto) 1.2 (1.2-5.4) K/mm3 [place] # (Auto) 0.3 (0.0-0.8) K/mm3 Eos # (Auto) 0.1 (0.0-0.4) K/mm3 Baso # (Auto) 0.1 (0.0-0.1) K/mm3 Comprehensive Metabolic Panel 05/11/22 Range/Units 06:06 Sodium 129 L D (137-145) mmol/L Potassium 4.6 (3.6-5.0) mmol/L Chloride 91.1 L (98-107) mmol/L Carbon Dioxide 23 (22-30) mmol/L BUN 20 (9-20) mg/dL Creatinine 1.0 (0.8-1.3) mg/dL Glucose 421 H (75-100) mg/dL Calcium 8.7 (8.4-10.2) mg/dL 05/09/22 EKG - SR 99, possible anteroseptal Q waves, no acute ischemic changes Assessment and Plan #Dyspnea #Diabetes #Asthma #Acute on chronic respiratory failure - trach dependent Will obtain echocardiogram. NT-pro BNP is <300; thus diagnosis of decompensated heart failure is unlikely at this time. Continue treatment of lung disease.
--- NOTE | 2022-05-11 11:07 | Progress Note ---
Assessment and Plan Assessment and plan: Acute on chronic hypoxic respiratory failure. Tracheostomy dependent COPD exacerbation Hypokalemia Diabetes mellitus type 2, uncontrolled History of CAD 05/10/2022. Follow-up COVID 19 PCR. Continue IV steroids and bronchodilators/nebulizers. Continue diuresis and monitor I/O's plus daily weights. Follow-up echocardiogram. Cardiology consultation pending. Continue tracheostomy care, secretion control and airway management. Continue sliding scale insulin and Accu-Cheks. 05/11/2022. COVID PCR found to be negative. Await echocardiogram results to determine systolic and diastolic function. Etiology of respiratory failure likely secondary to COPD exacerbation. BNP is normal therefore diagnosis of decompensated heart failure is unlikely. Continue Accu-Cheks and sliding scale insulin. We will initiate Lantus 15 units every morning for hyperglycemia given the administration of steroids. Patient currently requiring 6 L O2. Patient reports that he is not on home oxygen. History Interval history: No new issues overnight Hospitalist Physical - Constitutional Vitals: Temp Pulse Resp BP Pulse Ox 97.9 F 71 18 150/87 98 05/11/22 08:08 05/11/22 08:08 05/11/22 08:08 05/11/22 08:08 05/11/22 08:25 General appearance: Present: no acute distress, well-nourished, obese - EENT Eyes: Present: PERRL, EOM intact ENT: hearing intact, clear oral mucosa, dentition normal - Neck Neck: Present: supple, normal ROM - Respiratory Respiratory effort: normal Respiratory: bilateral: CTA - Cardiovascular Rhythm: regular Heart Sounds: Present: S1 & S2. Absent: gallop, rub - Extremities Extremities: no ischemia, No edema, Full ROM - Abdominal General gastrointestinal: soft, non-tender, non-distended, normal bowel sounds - Integumentary Integumentary: Present: clear, warm, dry - Neurologic Neurologic: CNII-XII intact, moves all extremities HEART Score - HEART Score Troponin: Troponin T < 0.010 ng/mL (0.00-0.029) 05/10/22 04:43 Results - Labs CBC & Chem 7: 05/11/22 06:06 05/11/22 06:06 Labs: Laboratory Last Values WBC 10.4 K/mm3 (4.5-11.0) 05/11/22 06:06 RBC 5.20 M/mm3 (3.65-5.03) H 05/11/22 06:06 Hgb 14.1 gm/dl (11.8-15.2) 05/11/22 06:06 Hct 43.9 % (35.5-45.6) 05/11/22 06:06 MCV 84 fl (84-94) 05/11/22 06:06 MCH 27 pg (28-32) L 05/11/22 06:06 MCHC 32 % (32-34) 05/11/22 06:06 RDW 16.2 % (13.2-15.2) H 05/11/22 06:06 Plt Count 229 K/mm3 (140-440) 05/11/22 06:06 Lymph % (Auto) 11.4 % (13.4-35.0) L 05/11/22 06:06 [place] % (Auto) 3.2 % (0.0-7.3) 05/11/22 06:06 Eos % (Auto) 0.6 % (0.0-4.3) 05/11/22 06:06 Baso % (Auto) 0.7 % (0.0-1.8) 05/11/22 06:06 Lymph # (Auto) 1.2 K/mm3 (1.2-5.4) 05/11/22 06:06 [place] # (Auto) 0.3 K/mm3 (0.0-0.8) 05/11/22 06:06 Eos # (Auto) 0.1 K/mm3 (0.0-0.4) 05/11/22 06:06 Baso # (Auto) 0.1 K/mm3 (0.0-0.1) 05/11/22 06:06 Seg Neutrophils % 84.1 % (40.0-70.0) H 05/11/22 06:06 Seg Neutrophils # 8.7 K/mm3 (1.8-7.7) H 05/11/22 06:06 PT 12.5 Sec. (12.2-14.9) 05/09/22 22:53 INR 0.83 (0.87-1.13) L 05/09/22 22:53 APTT 22.0 Sec. (24.2-36.6) L 05/09/22 22:53 Sodium 129 mmol/L (137-145) L D 05/11/22 06:06 Potassium 4.6 mmol/L (3.6-5.0) 05/11/22 06:06 Chloride 91.1 mmol/L (98-107) L 05/11/22 06:06 Carbon Dioxide 23 mmol/L (22-30) 05/11/22 06:06 Anion Gap 20 mmol/L 05/11/22 06:06 BUN 20 mg/dL (9-20) 05/11/22 06:06 Creatinine 1.0 mg/dL (0.8-1.3) 05/11/22 06:06 Estimated GFR > 60 ml/min 05/11/22 06:06 BUN/Creatinine Ratio 20 % 05/11/22 06:06 Glucose 421 mg/dL (75-100) H 05/11/22 06:06 POC Glucose 449 mg/dL (70-105) H 05/11/22 08:05 Calcium 8.7 mg/dL (8.4-10.2) 05/11/22 06:06 Total Bilirubin 0.40 mg/dL (0.1-1.2) 05/09/22 22:53 AST 70 units/L (5-40) H 05/09/22 22:53 ALT 73 units/L (7-56) H 05/09/22 22:53 Alkaline Phosphatase 90 units/L (35-129) 05/09/22 22:53 Troponin T < 0.010 ng/mL (0.00-0.029) 05/10/22 04:43 NT-Pro-B Natriuret Pep 27.76 pg/mL (0-900) 05/09/22 22:53 Total Protein 7.0 g/dL (6.3-8.2) 05/09/22 22:53 Albumin 3.9 g/dL (3.9-5) 05/09/22 22:53 Albumin/Globulin Ratio 1.3 % 05/09/22 22:53 Coronavirus (PCR) Negative (Negative) 05/10/22 11:30 Microbiology: Microbiology 05/09/22 23:41 Peripheral/Venous Blood Culture - Preliminary NO GROWTH AFTER 24 HOURS 05/10/22 00:27 Peripheral/Venous Blood Culture - Preliminary NO GROWTH AFTER 24 HOURS Quintana/IV: Voiding Method Urinal Active Medications - Current Medications Current Medications: Generic Name Dose Route Start Last Admin Trade Name Freq PRN Reason Stop Dose Admin Acetaminophen 650 mg 05/09/22 23:55 Acetaminophen 325 Mg Tab PO Q4H PRN Pain MILD(1-3)/Fever >100.5/FUNG Albuterol/Ipratropium 1 ampul 05/10/22 02:00 05/11/22 08:22 Ipratropium/Albuterol Sulfate 3 Ml Ampul.Neb IH 1 ampul Q6HRT JUSTINO Administration Dextrose 0 ml 05/09/22 23:55 Dextrose 50% In Water (25gm) 50 Ml Syringe IV Q30MIN PRN Hypoglycemia Protocol Furosemide 40 mg 05/10/22 06:00 05/11/22 05:21 Furosemide 40 Mg/4 Ml Inj IV 40 mg BID@0600,1800 JUSTINO Administration Heparin Sodium (Porcine) 5,000 unit 05/10/22 06:00 05/11/22 05:21 Heparin 5,000 Unit/1 Ml Vial SUB-Q 5,000 unit Q8HR JUSTINO Administration Azithromycin 500 mg in 250 mls @ 250 mls/hr 05/10/22 10:00 05/11/22 09:18 Zithromax/Ns IV 250 mls/hr Q24HR JUSTINO Administration Protocol Ceftriaxone Sodium 2 gm in 100 mls @ 200 mls/hr 05/10/22 10:00 05/11/22 09:18 Rocephin/Ns 2 Gm/100 Ml IV 200 mls/hr Q24HR JUSTINO Administration Protocol Insulin Glargine 15 units 05/11/22 09:00 05/11/22 08:34 Insulin Glargine 100 Units/Ml SUB-Q 15 units DAILY JUSTINO Administration Insulin Human Lispro 0 unit 05/10/22 07:30 05/11/22 08:29 Insulin Lispro 100 Unit/Ml SUB-Q 8 unit ACHS JUSTINO Administration Protocol Magnesium Hydroxide 30 ml 05/09/22 23:55 Magnesium Hydroxide (Mom) Oral Liqd Udc PO Q4H PRN Constipation Methylprednisolone Sodium Succinate 40 mg 05/10/22 06:00 05/11/22 05:21 Methylprednisolone Sod Succinate 40 Mg/1 Ml Inj IV 40 mg Q8HR JUTSINO Administration Morphine Sulfate 2 mg 05/09/22 23:55 Morphine 2 Mg/1 Ml Inj IV Q4H PRN Pain, Moderate (4-6) Morphine Sulfate 4 mg 05/09/22 23:55 05/11/22 09:18 Morphine 4 Mg/1 Ml Inj IV 4 mg Q4H PRN Administration Pain , Severe (7-10) Ondansetron HCl 4 mg 05/09/22 23:55 05/10/22 21:11 Ondansetron 4 Mg/2 Ml Inj IV 4 mg Q8H PRN Administration Nausea And Vomiting Sodium Chloride 10 ml 05/10/22 10:00 05/11/22 09:19 Sodium Chloride 0.9% 10 Ml Flush Syringe IV 10 ml BID JUSTINO Administration Sodium Chloride 10 ml 05/09/22 23:55 Sodium Chloride 0.9% 10 Ml Flush Syringe IV PRN PRN LINE FLUSH Nutrition/Malnutrition Assess - Dietary Evaluation Nutrition/Malnutrition Findings: Nutrition Notes Start: 05/10/22 13:34 Freq: Status: Active Protocol: Document 05/10/22 13:34 RIA (Rec: 05/10/22 13:40 RIA [id number]) Nutrition Notes Need for Assessment generated from: MD Order,Education Initial or Follow up Brief Note Current Diagnosis COPD,Diabetes,Hypertension, Heart Failure Other Pertinent Diagnosis CHF vs COPD exacerbation Current Diet Cardiac/Consistent CHO Labs/Tests POC Glu: 252, 290, 328 Pertinent Medications Lasix, Solumedrol Height 5 ft 9 in Weight 110.3 kg [place] Body Weight (kg) 72.72 BMI 35.9 Weight Status Obese Subjective/Other Information RD consulted for diet education. Pt with permanent trach. BP elevated. Burn Absent Trauma Absent Minimum of two criteria No Is patient on ventilator? No Is Patient Ambulatory and/or Out of Bed Yes REE-([place]-ambulatory/OOB) [ 2422.394 NUTR.[id number]] Kcal/Kg value to use for calculation 17 Approximate Energy Requirements Using 1875 kcal/Kg Calculation Used for Recommendations Kcal/kg Additional Notes Pro needs 1-1.2g/kg adjBW: 92- 110g/day Fluid needs per MD Nutrition Intervention Follow-Up By: 05/12/22 Additional Comments F/U: diet education needs, intakes
[2022-05-12] MEDS: IPRATROPIUM/ALBUTEROL SULFATE 3 ML AMPUL.NEB IH SCH ×2 (03:09→10:23)
[2022-05-12] MEDS: FUROSEMIDE 40 MG/4 ML INJ IV SCH (05:52)
[2022-05-12] MEDS: HEPARIN 5,000 UNIT/1 ML VIAL SUB-Q SCH ×2 (05:52→13:09)
[2022-05-12] MEDS: methylPREDNISolone Sod Succinate 40 MG/1 ML INJ IV SCH ×2 (05:52→13:09)
[2022-05-12] MEDS: MORPHINE 4 MG/1 ML INJ IV PRN (05:58)
[2022-05-12 06:26] LABS: Basophils % (Auto) 0.3 % (0.0-1.8); Eosinophils % (Auto) 0.1 % (0.0-4.3); Hematocrit 42.3 % (35.5-45.6); Hemoglobin 13.5 gm/dl (11.8-15.2); Lymphocytes # (Auto) 0.8 K/mm3 (1.2-5.4); Lymphocytes % (Auto) 8.3 % (13.4-35.0); Mean Corpuscular HGB Conc 32 % (32-34); Mean Corpuscular Volume 85 fl (84-94); Monocytes # (Auto) 0.3 K/mm3 (0.0-0.8); Monocytes % (Auto) 3.1 % (0.0-7.3); Platelet Count 213 K/mm3 (140-440); Red Blood Count 4.97 M/mm3 (3.65-5.03); Red Cell Distribution Width 15.8 % (13.2-15.2)
[2022-05-12 06:42] LABS: BUN/Creatinine Ratio 22; Blood Urea Nitrogen 22 mg/dL (9-20); Calcium 8.4 mg/dL (8.4-10.2); Hemolysis Index 8
[2022-05-12 07:59] VITALS: BP 117/53
[2022-05-12] MEDS ORDERED: ALBUTEROL 8.5 GM MDI INHALATION IH PRN (08:12)
--- NOTE | 2022-05-12 08:19 | Discharge Summary ---
Providers - Providers Date of Admission: 05/09/22 23:56 Date of discharge: 05/12/22 Attending physician: MESFIN PALMER 05/09/22 23:56 Consult to Dietitian/Nutrition [CONS] Routine Physician Instructions: Reason For Exam: Reason for Consult: Diet education 05/10/22 00:01 Consult to Cardiology [CONS] Routine Consulting Provider: MOSES PICKERING Reason For Exam: CHF exac Primary care physician: JAYME VERDIN Hospitalization Reason for admission: COPD exacerbation Condition: Stable Hospital course: 66-year-old -Turkish male with known history of CHF, COPD, diabetes mellitus and history of coronary artery disease presented to the emergency room today via EMS with complaints of shortness of breath and a productive of some frothy sputum. Patient also reported medical noncompliance and has not taken his diuretic for about 3 to 4 days. Upon arrival of EMS was said to be diaphoretic with an O2 saturation of 92% on room air. Patient was repeatedly suctioned and given some nebulizing treatment in route to the hospital. Work-up in the emergency room today, labs significant for mild hypokalemia of 3.4. Chest x-ray shows nonspecific bibasilar opacities which could represent atelectasis or pneumonia. Patient placed on nebulizer treatments, empiric IV antibiotics and diuretics. The patient was admitted with diagnosis below: Acute on chronic hypoxic respiratory failure. Tracheostomy dependent COPD exacerbation Hypokalemia Diabetes mellitus type 2, uncontrolled History of CAD Hospital course: 05/10/2022. Follow-up COVID 19 PCR. Continue IV steroids and bronchodilators/nebulizers. Continue diuresis and monitor I/O's plus daily weights. Follow-up echocardiogram. Cardiology consultation pending. Continue tracheostomy care, secretion control and airway management. Continue sliding scale insulin and Accu-Cheks. 05/11/2022. COVID PCR found to be negative. Await echocardiogram results to determine systolic and diastolic function. Etiology of respiratory failure likely secondary to COPD exacerbation. BNP is normal therefore diagnosis of decompensated heart failure is unlikely. Continue Accu-Cheks and sliding scale insulin. We will initiate Lantus 15 units every morning for hyperglycemia given the administration of steroids. Patient currently requiring 6 L O2. Patient reports that he is not on home oxygen. 05/12/2022. Patient is back to baseline respiratory status. Patient with FiO2 of 28% aerosolized trach collar. Patient reports he ambulates without any dyspnea. Etiology of respiratory failure likely secondary to COPD exacerbation. BNP is normal therefore diagnosis of decompensated heart failure is unlikely. Patient has received IV steroids and breathing treatments with improvement. Patient is felt to have received maximal hospital benefit and will be discharged home. Dedicated discharge time 32 minutes Disposition: 01 HOME / SELF CARE / HOMELESS Final Discharge Diagnosis (Prints w/discharge instructions): Acute on chronic hypoxic respiratory failure. Tracheostomy dependent. COPD exacerbation. Hypokalemia. Diabetes mellitus type 2, uncontrolled. History of CAD Core Measure Documentation - Palliative Care Palliative Care/ Comfort Measures: Not Applicable - Core Measures Any of the following diagnoses?: none Exam - Constitutional Vitals: Temp Pulse Resp BP Pulse Ox 98.2 F 60 18 117/53 96 05/12/22 07:58 05/12/22 07:58 05/12/22 07:58 05/12/22 07:58 05/12/22 07:58 General appearance: Present: no acute distress, well-nourished - EENT Eyes: Present: PERRL ENT: hearing intact, clear oral mucosa - Neck Neck: Present: supple, normal ROM - Respiratory Respiratory effort: normal Respiratory: bilateral: CTA - Cardiovascular Heart Sounds: Present: S1 & S2. Absent: rub, click - Extremities Extremities: pulses symmetrical, No edema Peripheral Pulses: within normal limits - Abdominal General gastrointestinal: Present: soft, non-tender, non-distended, normal bowel sounds Male genitourinary: Present: normal - Integumentary Integumentary: Present: clear, warm, dry - Musculoskeletal Musculoskeletal: gait normal, strength equal bilaterally - Psychiatric Psychiatric: appropriate mood/affect, intact judgment & insight - Neurologic Neurologic: CNII-XII intact, moves all extremities Plan Activity: advance as tolerated Weight Bearing Status: Weight Bear as Tolerated Diet: regular Follow up with: JAYME VERDIN MD [Primary Care Provider] - 3-5 Days MARY JO NO MD [Staff Physician] - 7 Days Prescriptions: Fluticasone/Salmeterol [Advair Diskus 250-50 mcg] 250 mg INHALATION QDAY 30 Days Gabapentin 300 mg PO DAILY #30 cap Blood Sugar Diagnostic [Glucose Test Strip] 1 each MC TID #90 strip Furosemide [Lasix] 40 mg PO DAILY #30 tab AtorvaSTATin [Lipitor] 40 mg PO QDAY #30 tab Insulin Aspart [Novolog Flexpen] 30 unit SQ TID 30 Days Albuterol Mdi (or & Nicu Only) [ProAir HFA Inhaler] 1 puff IH QID PRN 30 Days PRN Reason: Shortness Of Breath ALBUTEROL NEB's [Proventil 0.083% NEBS] 2.5 mg IH TID PRN 30 Days PRN Reason: Wheezing
[2022-05-12] MEDS ORDERED: ALBUTEROL 2.5 MG/3 ML NEBU IH PRN (09:00)
[2022-05-12] MEDS: AZITHROMYCIN/NS 500 MG/250 ML 500 MG/250 ML BAG IV SCH (09:36)
[2022-05-12] MEDS: cefTRIAXone/NS 2 GM/100 ML 2 GM/100 ML BAG IV SCH (09:36)
[2022-05-12] MEDS: INSULIN GLARGINE 100 UNITS/ML SUB-Q SCH (09:37)
[2022-05-12] MEDS: INSULIN LISPRO 100 UNIT/ML SUB-Q SCH ×2 (09:37→12:49)
[2022-05-12] MEDS: MORPHINE 2 MG/1 ML INJ IV PRN ×2 (09:40→14:00)
[2022-05-12] MEDS ORDERED: NON-FORMULARY EACH (Fluticasone/Salmeterol [Advair Diskus 250-50 Mcg] 1 EACH Blst.W.Dev) INHALATION SCH (10:00)
[2022-05-12] MEDS ORDERED: GABAPENTIN 300 MG CAP PO SCH (10:00)
[2022-05-12] MEDS ORDERED: NAPROXEN 500 MG TAB PO SCH (10:00)
--- NOTE | 2022-05-12 11:00 | Progress Note ---
Assessment and Plan #Dyspnea #Diabetes #Asthma #Acute on chronic respiratory failure - trach dependent Dyspnea likely secondary to lung disease. Echo showed normal LVEF and no other significant findings. NT-pro BNP is <300; thus diagnosis of decompensated heart failure is unlikely. Continue treatment of lung disease. Will sign off. Please call with questions. Subjective Date of service: 05/12/22 Interval history: No acute events. No CP, breathing stable. Echo showed normal LVEF and no other significant findings. Tele - SR Objective Vital Signs Temp Pulse Pulse Pulse Pulse Resp Resp 05/12/22 10:37 05/12/22 10:35 05/12/22 10:15 77 78 16 05/12/22 08:00 60 18 05/12/22 07:58 98.2 F 60 18 05/12/22 05:48 97.9 F 70 16 05/12/22 03:14 05/12/22 03:12 75 16 05/12/22 02:00 17 05/11/22 21:47 05/11/22 21:24 81 18 05/11/22 19:30 98.7 F 66 18 05/11/22 15:47 98.0 F 18 05/11/22 14:00 76 18 05/11/22 11:36 98.0 F 79 18 Resp BP BP Pulse Ox Pulse Ox 05/12/22 10:37 98 05/12/22 10:35 98 05/12/22 10:15 16 05/12/22 08:00 96 05/12/22 07:58 117/53 96 05/12/22 05:48 136/70 98 05/12/22 03:14 100 05/12/22 03:12 05/12/22 02:00 99 05/11/22 21:47 98 98 05/11/22 21:24 05/11/22 19:30 117/56 99 05/11/22 15:47 143/81 05/11/22 14:00 99 05/11/22 11:36 143/79 96 - Physical Examination Narrative exam: Gen-NAD, comfortable HEENT-normocephalic, atraumatic CV-RRR, no murmurs Lungs-CTAB, no increased WOB, + trach Abd-soft, nt,nd, obese Ext-no edema, warm to touch Neuro-no focal deficits, alert and oriented Psych-normal affect, no agitation - Labs and Meds CBC 05/12/22 Range/Units 05:47 WBC 9.4 (4.5-11.0) K/mm3 RBC 4.97 (3.65-5.03) M/mm3 Hgb 13.5 (11.8-15.2) gm/dl Hct 42.3 (35.5-45.6) % Plt Count 213 (140-440) K/mm3 Lymph # (Auto) 0.8 L (1.2-5.4) K/mm3 [place] # (Auto) 0.3 (0.0-0.8) K/mm3 Eos # (Auto) 0.0 (0.0-0.4) K/mm3 Baso # (Auto) 0.0 (0.0-0.1) K/mm3 Comprehensive Metabolic Panel 05/12/22 Range/Units 05:47 Sodium 135 L (137-145) mmol/L Potassium 4.1 (3.6-5.0) mmol/L Chloride 93.9 L (98-107) mmol/L Carbon Dioxide 30 D (22-30) mmol/L BUN 22 H (9-20) mg/dL Creatinine 1.0 (0.8-1.3) mg/dL Glucose 399 H (75-100) mg/dL Calcium 8.4 (8.4-10.2) mg/dL
[2022-05-12] MEDS ORDERED: INSULIN LISPRO 100 UNIT/ML SUB-Q SCH (12:00)
[2022-05-12] MEDS ORDERED: INSULIN NPH/REGULAR 70/30 INJ SUB-Q ONE (12:00)
[2022-05-12] MEDS ORDERED: INSULIN ASPART 100 UNIT/ML SQ SCH (14:00)
[2022-05-12] MEDS ORDERED: INSULN SQ SCH (14:00)
[2022-05-12] MEDS ORDERED: ARFORMOTEROL 15 MCG/2 ML NEBU IH SCH (20:00)
[2022-05-12] MEDS ORDERED: BUDESONIDE 0.5 MG/2 ML NEBU IH SCH (20:00)
[2022-05-13] MEDS ORDERED: FUROSEMIDE 40 MG TAB PO SCH (10:00)
== END 2022-05-12 16:20 | disposition home or self-care (01) | DRG 189 ==
LOC: ED 22:09 → 4A 23:56
PROVIDERS: ADMIT Internal Medicine Geriatric Medicine; ATTEND Hospitalist
DX: J96.21 Acute and chronic respiratory failure with hypoxia (principal); Z20.822 Contact with and (suspected) exposure to COVID-19; I11.0 Hypertensive heart disease with heart failure; J44.1 Chronic obstructive pulmonary disease with (acute) exacerbation; I50.9 Heart failure, unspecified; R91.8 Other nonspecific abnormal finding of lung field; Z93.0 Tracheostomy status; E11.9 Type 2 diabetes mellitus without complications; Z87.891 Personal history of nicotine dependence; I25.2 Old myocardial infarction; Z91.19 Patient's noncompliance with other medical treatment and regimen; I25.10 Atherosclerotic heart disease of native coronary artery without angina pectoris; E87.6 Hypokalemia
CPT/HCPCS: 36415; 71045; 80048; 80053; 82962; 83880; 84484; 85025; 85610; 85730; 87040; 93005; 93306; 94640; 94644; 94760; G0378; Q0177; Q9967; C8929; J0456; J0696; J1644; J1815; J1940; J2270; J2405; J2920; J3475; U0003